=== PATIENT | female | born 2000 | race Caucasian/White ===

== ENCOUNTER → 2022-01-24 13:26 | Outpatient (CLI) | payer OTHER, SELFPAY | PROVIDERS: PCP Nurse Practitioner Family; Visit Provider Nurse Practitioner Family | DX: R06.00 Dyspnea, unspecified (principal); R07.9 Chest pain, unspecified; R42 Dizziness and giddiness; R55 Syncope and collapse; R51.9 Headache, unspecified; H53.9 Unspecified visual disturbance; Z86.79 Personal history of other diseases of the circulatory system; Z90.81 Acquired absence of spleen | CPT/HCPCS: 93270 ==

== ENCOUNTER → 2022-02-05 14:04 | Outpatient (CLI) | payer OTHER, SELFPAY | PROVIDERS: PCP Nurse Practitioner Family; Visit Provider Nurse Practitioner Family | DX: R06.00 Dyspnea, unspecified (principal); R07.9 Chest pain, unspecified; R55 Syncope and collapse; R42 Dizziness and giddiness; H53.9 Unspecified visual disturbance; R51.9 Headache, unspecified; Z86.79 Personal history of other diseases of the circulatory system; Z90.81 Acquired absence of spleen | CPT/HCPCS: 93306 ==